=== PATIENT | female | born 1985 | race Two or more races ===

== ENCOUNTER 2021-03-27 11:03 | Inpatient (IN) | payer OTHER, BC ==
[~2021-03-27] VITALS: Ht 165.1 cm; Wt 1.8 kg
[2021-03-27] MEDS ORDERED: PRENATAL CAPLE1 EAC1 PO (12:52)
[2021-03-27] MEDS ORDERED: URSODIOL500 MG PO (12:53)
== END 2021-03-30 13:42 | disposition home or self-care (01) | DRG 786 ==
LOC: OB/GYN 11:03 → LDR 11:03 → OB/GYN 21:14
PROVIDERS: ADMIT Obstetrics & Gynecology; ATTEND Obstetrics & Gynecology
PROC: 4A1HXCZ Monitoring of Products of Conception, Cardiac Rate, External Approach (ICD-10-PCS; 2021-03-27)
PROC: 10D00Z1 Extraction of Products of Conception, Low, Open Approach (ICD-10-PCS; principal; 2021-03-27 17:00)
DX: O36.5930 Maternal care for other known or suspected poor fetal growth, third trimester, not applicable or unspecified (principal); O60.14X0 Preterm labor third trimester with preterm delivery third trimester, not applicable or unspecified; K83.1 Obstruction of bile duct; O26.613 Liver and biliary tract disorders in pregnancy, third trimester; Z3A.35 35 weeks gestation of pregnancy; Z37.0 Single live birth; Z20.822 Contact with and (suspected) exposure to COVID-19